=== PATIENT | male | born 1985 | race African-American/Black ===

== ENCOUNTER 2018-06-11 21:41 | Emergency (ER) | payer MEDICAID ==
[~2018-06-11] VITALS: Ht 177.8 cm; Wt 117.6 kg
[~2018-06-11 21:41] MED LIST: ALBU18HF2 INH; ALBU8.5H8 IH; ALBU8HFA PO; ALBUTEROL INHALER; CLIN300C85 PO; IBUP-1985 PO; METH4TAB81 PO; ONDA4TAB6 PO
[2018-06-11 22:07] VITALS: BP 150/96
--- NOTE | 2018-06-12 02:03 | NUR ---
pt NIL x 3. notified. stated he "pt did not need to be called in to be assessed."
== END 2018-06-12 02:05 | disposition left against medical advice (07) ==
LOC: ER 21:42
DX: M79.673 Pain in unspecified foot (principal); Z53.21 Procedure and treatment not carried out due to patient leaving prior to being seen by health care provider

== ENCOUNTER 2018-06-12 09:18 | Emergency (ER) | payer MEDICAID ==
[~2018-06-12] VITALS: Ht 177.8 cm; Wt 128.3 kg
[2018-06-12 09:40] VITALS: BP 141/92
== END 2018-06-12 11:16 | disposition home or self-care (01) ==
LOC: ER 09:18
DX: M79.672 Pain in left foot (principal); J45.909 Unspecified asthma, uncomplicated
CPT/HCPCS: 73630; 99283

== ENCOUNTER 2019-01-06 22:44 | Emergency (ER) | payer MEDICAID ==
[~2019-01-06] VITALS: Ht 177.8 cm; Wt 122.0 kg
[~2019-01-06 22:44] MED LIST changes: -ALBU18HF2 INH; -ALBU8HFA PO; -ALBUTEROL INHALER; -CLIN300C85 PO; -IBUP-1985 PO; -METH4TAB81 PO; -ONDA4TAB6 PO
[2019-01-06] MEDS ORDERED: ibuprofen tablet 400 MG TABLET PO ONE (23:25)
[2019-01-06 23:43] VITALS: BP 122/67
== END 2019-01-06 23:46 | disposition home or self-care (01) ==
LOC: ER 22:45
DX: M79.671 Pain in right foot (principal); J45.909 Unspecified asthma, uncomplicated; Z86.14 Personal history of Methicillin resistant Staphylococcus aureus infection; Z79.899 Other long term (current) drug therapy
CPT/HCPCS: 73630; 99283

== ENCOUNTER 2019-01-12 22:31 | Emergency (ER) | payer MEDICAID ==
[~2019-01-12] VITALS: Ht 177.8 cm; Wt 121.3 kg
[2019-01-12 22:39] VITALS: BP 144/94
[2019-01-12] MEDS ORDERED: NAPR-56 PO (23:04)
[2019-01-12] MEDS ORDERED: ALBU6.7H9 INH (23:04)
[2019-01-12] MEDS ORDERED: LIDO20SO16 PO (23:04)
== END 2019-01-12 23:22 | disposition home or self-care (01) ==
LOC: ER 22:31
DX: J06.9 Acute upper respiratory infection, unspecified (principal); J45.909 Unspecified asthma, uncomplicated; Z86.14 Personal history of Methicillin resistant Staphylococcus aureus infection; Z79.899 Other long term (current) drug therapy
CPT/HCPCS: 99283

== ENCOUNTER 2020-01-30 18:34 | Emergency (ER) | payer MEDICAID ==
[~2020-01-30] VITALS: Ht 177.8 cm; Wt 124.1 kg
[~2020-01-30 18:34] MED LIST changes: +ALBU6.7H9 INH; +LIDO20SO16 PO
[2020-01-30 18:49] VITALS: BP 149/97
[2020-01-30 19:26] LABS: BASOPHILS # (AUTO) 0.1 X10'3 (0-0.2); EOSINOPHILS # (AUTO) 0.2 X10'3 (0-0.9); EOSINOPHILS % (AUTO) 2.7 % (0-6); HEMATOCRIT 44.1 % (42.0-52.0); HEMOGLOBIN 15.4 g/dl (14.0-17.9); LYMPHOCYTES # (AUTO) 2.2 X10'3 (1.1-4.8); MEAN CORPUSCULAR HEMOGLOBIN 32.6 PG (27.0-31.0); MEAN CORPUSCULAR HGB CONC 34.9 g/dL (33.0-36.5); MEAN CORPUSCULAR VOLUME 93.2 FL (78-98); MEAN PLATELET VOLUME 9.6 FL (7.4-10.4); MONOCYTES # (AUTO) 0.7 X10'3 (0-0.9); NEUTROPHILS % (AUTO) 61.3 % (42-75); PLATELET COUNT 173 X10'3 (140-440); RED BLOOD COUNT 4.73 X10'6 (4.70-6.10); RED CELL DISTRIBUTION WIDTH 12.7 % (11.5-14.5); WHITE BLOOD COUNT 8.1 X10'3 (4.5-11.0)
[2020-01-30 19:36] LABS: ALANINE AMINOTRANSFERASE 43 U/L (12-78); ALBUMIN 4.2 G/DL (3.4-5.0); ALBUMIN/GLOBULIN RATIO 1.2 (1.1-1.5); ALKALINE PHOSPHATASE 74 IU/L (46-116); ANION GAP 8 (8-16); ASPARTATE AMINO TRANSFERASE 30 U/L (10-37); BILIRUBIN,TOTAL 0.7 MG/DL (0.1-1.0); BLOOD UREA NITROGEN 8 MG/DL (7-18); BUN/CREATININE RATIO 6.5 (5.4-32.0); CALCIUM 8.2 MG/DL (8.5-10.1); CHLORIDE 104 MMOL/L (99-107); CREATININE 1.24 MG/DL (0.60-1.10); GLUCOSE 97 MG/DL (70-104); POTASSIUM 3.6 MMOL/L (3.5-5.1); SODIUM 139 MMOL/L (135-145); TOTAL CARBON DIOXIDE 26.6 MMOL/L (24-32); TOTAL PROTEIN 7.6 G/DL (6.4-8.2); eGFR 80 ML/MIN
[2020-01-30 19:44] LABS: TROPONIN I < 0.04 NG/ML (0.0-0.05)
[2020-01-30] MEDS ORDERED: ERYT1OIN6 RIGHTEYE (20:29)
[2020-01-30] MEDS ORDERED: PANT-47 PO (20:29)
== END 2020-01-30 21:06 | disposition home or self-care (01) ==
LOC: ER 18:36
DX: H10.9 Unspecified conjunctivitis (principal); B96.89 Other specified bacterial agents as the cause of diseases classified elsewhere; K21.9 Gastro-esophageal reflux disease without esophagitis; J45.909 Unspecified asthma, uncomplicated; F17.200 Nicotine dependence, unspecified, uncomplicated; Z86.14 Personal history of Methicillin resistant Staphylococcus aureus infection; Z79.899 Other long term (current) drug therapy
CPT/HCPCS: 36415; 71045; 80053; 83880; 84484; 85025; 93005; 99285

== ENCOUNTER 2020-12-29 13:14 | Emergency (ER) | payer MEDICAID ==
[~2020-12-29] VITALS: Ht 177.8 cm; Wt 130.1 kg
[~2020-12-29 13:14] MED LIST changes: +ALBU8.5H17 IH; -ALBU8.5H8 IH; +PANT-47 PO
[2020-12-29 13:27] VITALS: BP 151/82
== END 2020-12-29 14:30 | disposition home or self-care (01) ==
LOC: ER 13:15
DX: S63.502A Unspecified sprain of left wrist, initial encounter (principal); M25.532 Pain in left wrist; J45.909 Unspecified asthma, uncomplicated; Z86.14 Personal history of Methicillin resistant Staphylococcus aureus infection; Z79.899 Other long term (current) drug therapy; W19.XXXA Unspecified fall, initial encounter; Y93.89 Activity, other specified; Y92.89 Other specified places as the place of occurrence of the external cause; Y99.8 Other external cause status
CPT/HCPCS: 29125; 73110; 99283

== ENCOUNTER 2021-06-06 07:54 | Emergency (ER) | payer MEDICAID ==
[~2021-06-06] VITALS: Ht 177.8 cm; Wt 124.1 kg
[2021-06-06 08:04] VITALS: BP 181/100
== END 2021-06-06 08:15 | disposition home or self-care (01) ==
LOC: ER 07:55
DX: M25.532 Pain in left wrist (principal); J45.909 Unspecified asthma, uncomplicated; Z86.14 Personal history of Methicillin resistant Staphylococcus aureus infection; Z79.899 Other long term (current) drug therapy
CPT/HCPCS: 99282

== ENCOUNTER 2021-10-28 02:38 | Emergency (ER) | payer MEDICAID ==
[~2021-10-28] VITALS: Ht 177.8 cm; Wt 122.7 kg
[2021-10-28] MEDS ORDERED: ibuprofen tablet 400 MG TABLET PO ONE (03:35)
[2021-10-28 03:44] VITALS: BP 140/90
== END 2021-10-28 03:46 | disposition home or self-care (01) ==
LOC: ER 02:39
DX: R51.9 Headache, unspecified (principal); R53.83 Other fatigue; J45.909 Unspecified asthma, uncomplicated; Z86.14 Personal history of Methicillin resistant Staphylococcus aureus infection; Z79.899 Other long term (current) drug therapy
CPT/HCPCS: 99282

== ENCOUNTER 2022-05-03 22:19 | Emergency (ER) | payer MEDICAID ==
[~2022-05-03] VITALS: Ht 177.8 cm; Wt 136.0 kg
[~2022-05-03 22:19] MED LIST changes: +ALBU6.7H14 INH; -ALBU6.7H9 INH
[2022-05-03 22:26] VITALS: BP 166/99
[2022-05-03] MEDS ORDERED: sulfamethoxazole/trimethoprim DS (800/160mg) tablet PO ONE (23:05)
[2022-05-03] MEDS ORDERED: LIDOCAINE 2%/EPI 1:100,000 inj. Multi-dose 20 ML VIAL SQ ONE (23:05)
[2022-05-03] MEDS ORDERED: LIDOcaine 1% W/epiNEPHrine 1:100,000 20ml vial SQ ONE (23:05)
[2022-05-03] MEDS ORDERED: SULF1TAB49 PO (23:34)
== END 2022-05-03 23:48 | disposition home or self-care (01) ==
LOC: ER 22:19
DX: L02.416 Cutaneous abscess of left lower limb (principal); J45.909 Unspecified asthma, uncomplicated; Z86.14 Personal history of Methicillin resistant Staphylococcus aureus infection; Z79.899 Other long term (current) drug therapy
CPT/HCPCS: 10060; 99283

== ENCOUNTER 2022-06-14 09:52 | Emergency (ER) | payer MEDICAID, OTHER ==
[~2022-06-14] VITALS: Ht 177.8 cm; Wt 136.4 kg
[2022-06-14 10:21] VITALS: BP 150/93
[2022-06-14] MEDS ORDERED: ORPH100T2 PO (12:30)
[2022-06-14] MEDS ORDERED: HYDR-3965 PO (12:30)
== END 2022-06-14 12:43 | disposition home or self-care (01) ==
LOC: ER 09:53
DX: S39.012A Strain of muscle, fascia and tendon of lower back, initial encounter (principal); J45.909 Unspecified asthma, uncomplicated; Z86.14 Personal history of Methicillin resistant Staphylococcus aureus infection; Z79.899 Other long term (current) drug therapy; X50.1XXA Overexertion from prolonged static or awkward postures, initial encounter; Y93.89 Activity, other specified; Y92.89 Other specified places as the place of occurrence of the external cause; Y99.8 Other external cause status
CPT/HCPCS: 99283

== ENCOUNTER 2023-09-03 23:58 | Emergency (ER) | payer MEDICAID, OTHER ==
[~2023-09-03] VITALS: Ht 177.8 cm; Wt 129.5 kg
[~2023-09-03 23:58] MED LIST changes: +ORPH100T4 PO
[2023-09-04] MEDS ORDERED: CLIN150C2 PO (02:30)
[2023-09-04 02:38] VITALS: BP 124/83; PULSE 66; RESP 16; TEMP 98.1; O2SAT 97
== END 2023-09-04 02:40 | disposition home or self-care (01) ==
LOC: ER 23:58
DX: R22.9 Localized swelling, mass and lump, unspecified (principal); J45.909 Unspecified asthma, uncomplicated; Z79.899 Other long term (current) drug therapy; Z79.2 Long term (current) use of antibiotics
CPT/HCPCS: 99283

== ENCOUNTER 2024-07-19 16:26 | Emergency (ER) | payer MEDICAID ==
[~2024-07-19] VITALS: Ht 177.8 cm; Wt 130.4 kg
[2024-07-19 16:28] VITALS: BP 160/80; PULSE 85; TEMP 99.7; O2SAT 98
[2024-07-19] MEDS ORDERED: LIDO15SO9 PO (17:45)
[2024-07-19] MEDS ORDERED: AMOX-580 PO (17:45)
[2024-07-19] MEDS ORDERED: PRED20TA PO (17:45)
[2024-07-19 18:03] VITALS: RESP 16
[2024-07-19] MEDS: dexamethasone sod phosphate 10mg/ml inj PO STA (18:03)
[2024-07-19] MEDS: ketorolac trometh 30MG/ML vial 30 MG/ML VIAL IM ONE (18:03)
== END 2024-07-19 18:10 | disposition home or self-care (01) ==
LOC: ER 16:27
DX: J02.0 Streptococcal pharyngitis (principal); J45.909 Unspecified asthma, uncomplicated
CPT/HCPCS: 96372; 99283; J1100; J1885